=== PATIENT | male | born 1960 | race Caucasian/White ===

== ENCOUNTER 2024-05-31 11:48 | Emergency (ER) | payer SELFPAY ==
[2024-05-31] MEDS: Diphtheria,Pertussis(Acell),Tetanus Vaccine 0.5 ML Syringe IM ONE (12:30)
[2024-05-31] MEDS: cefTRIAXone 1 GM, Lidocaine 1% 2.1 ML IM ONE (12:52)
[2024-05-31] MEDS: Lidocaine 1% with EPINEPHrine 1:100,000 20 ML MDV INJECT ONE (12:52)
[2024-05-31] MEDS: Bacitracin Oint 1 GM U/D Packet TOP ONE (12:52)
== END 2024-05-31 13:07 | disposition home or self-care (01) ==
LOC: JP.ED 11:48
DX: S61.412A Laceration without foreign body of left hand, initial encounter (principal); I10 Essential (primary) hypertension; Z23 Encounter for immunization; Z88.0 Allergy status to penicillin; W26.0XXA Contact with knife, initial encounter
CPT/HCPCS: 12001; 90471; 90715; 96372; 99282; J0696; 99283